=== PATIENT | female | born 1950 | race Caucasian/White ===

== ENCOUNTER 2016-12-18 10:16 | Emergency (ER) | payer OTHER ==
[2016-12-18 10:26] VITALS: RESP 18
[2016-12-18] MEDS ORDERED: OXYCODONE/APAP 5/325 TAB PO ONE (11:02)
--- NOTE | 2016-12-18 11:38 | EDPHY ---
General Narrative: CHIEF COMPLAINT: Fall, left wrist pain HISTORY OF PRESENT ILLNESS: Patient complains of left wrist pain after falling on the ice this morning. She slipped and fell, landing on her outstretched left arm. She felt a sudden onset of pain left wrist. Severe pain. No numbness or tingling. No head strike or loss of consciousness no pain or injury anywhere else. No injury to the left shoulder elbow. The pain is only in the left wrist. Worse with palpation and movement. Minimal improvement rest. No other associated complaints or modifying factors. Right-hand dominant. ESTABLISHED ORTHOPEDIST: None REVIEW OF SYSTEMS: Ten systems reviewed and are negative unless otherwise noted in the HPI PAST MEDICAL HISTORY: None PAST SURGICAL HISTORY: None SOCIAL HISTORY: Visiting from [facility]. Her daughter lives here in [place] FAMILY HISTORY: Noncontributory EXAMINATION General Appearance: Alert, no distress Cardiovascular: Pulses normal throughout. Symmetric radial pulses. Brisk cap refill Neurological: A&O, sensory symmetric, strength symmetric. No wrist drop. Normal light sensation of the hand. Good strength of the interossei on the affected hand. Skin: Warm and dry, no rash. No puncture. No laceration. No abrasion. Some ecchymosis Extremities: Tenderness of the left wrist circumferentially. There is edema and deformity. No tenderness of the left hand. No tenderness of the left elbow or shoulder. Range of motion of the left elbow was intact without pain including full extension. Unable to test full range of motion of the wrist due to pain and deformity. Psychiatric: Mood and affect normal DIFFERENTIAL DIAGNOSES: Including but not limited to fracture, dislocation, fracture dislocation, fracture with displacement, sprain, strain MDM: 11:00 a.m. Mechanical fall with distal radial and ulnar fractures. There is some angulation and intra-articular involvement. I have administered a hematoma block. She has received Percocet p. o.. She is neurovascular intact. I will attempt closed reduction. 11:50 a.m. Closed reduction of the wrist with hematoma block performed. This was performed without complication. She is placed in splint. X-ray has been ordered. 12:20 p.m. Post reduction film reveals no improvement in the fracture. I discussed this with Dr. Yu and he has reviewed it. He informs that the patient is in need of surgical repair in that there is no need to attempt another close reduction. He has openings this afternoon. He would like the patient to see him today. He will plan to put her on the operating scheduled for Sunday. I discussed this with the patient and her daughter. They are comfortable this plan. She is discharged neurovascular intact in a splint. Procedure: Hematoma block Consent: Verbal Location: Left wrist Indication: Distal radial ulnar fractures Description: After time-out the posterior aspect of the wrist was prepped with chlorhexidine. 7 mL of lidocaine 1% plain was infused the area of fracture line. Tolerated well. Good anesthesia. No complication. Neurovascular intact distally postprocedure. PROCEDURE: Closed reduction of distal radial fracture Consent: Verbal Location: Left wrist Anesthesia: Hematoma block Procedure: After good hematoma block and time-out, the patient was placed in finger traps. I was able to provide manipulation of the wrist with traction. There was good manipulation of the fracture segment. Tolerated well. Patient was placed in a splint immediately. Complications: None Post-reduction film: no improvement Procedure: Splint placement Indication: Left wrist fracture Description: Left sugar-tong splint placed by myself and Yanet lam. Tolerated well. Neurovascular intact pre and postprocedure ED Precautions: Worsening pain. Erythema, edema, cyanosis, pallor, paresthesia or anesthesia. - Diagnostics Imaging Results: Imaging Impressions Wrist X-Ray 12/18/16 10:29 Impression: Comminuted angulated fracture of the distal left radial metaphysis with intraarticular extension. Nondisplaced fracture of the ulnar styloid. - History Smoking Status: Former smoker - Objective Vital Signs: Initial Vital Signs Temperature (C) 97.5 F 12/18/16 10:23 Heart Rate 74 12/18/16 10:23 Respiratory Rate 18 12/18/16 10:23 Blood Pressure 164/80 H 12/18/16 10:23 O2 Sat (%) 96 12/18/16 10:23 O2 Delivery Mode Room Air Allergies/Adverse Reactions: No Known Allergies Allergy (Unverified 12/18/16 10:26) Home Medications: Medication Instructions Recorded Enalapril Maleate 5 mg 12/18/16 oxyCODONE HCL/ACETAMINOPHEN 1 each PO Q4-6PRN PRN #13 tablet 12/18/16 [Percocet 5-325 mg Tablet] Medications Given: Discontinued Medications Oxycodone/Acetaminophen (Percocet 5/325) 1 tab PO EDNOW ONE Stop: 12/18/16 11:03 Last Admin: 12/18/16 11:04 Dose: 1 tab Departure - Departure Disposition: Home, Routine, Self-Care Clinical Impression: Fracture of radius, distal, left, closed Qualifiers: Encounter type: initial encounter Fracture morphology: unspecified fracture morphology Qualified Code(s): S52.502A - Unspecified fracture of the lower end of left radius, initial encounter for closed fracture Ulna styloid fracture, closed Qualifiers: Encounter type: initial encounter Fracture alignment: nondisplaced Laterality: left Qualified Code(s): S52.615A - Nondisplaced fracture of left ulna styloid process, initial encounter for closed fracture Condition: Good Instructions: Wrist Fracture in Adults (ED) Additional Instructions: 1. Nonweightbearing left upper extremity until seen by Orthopedics 2. Keep your splint in place at all times until seen by orthopedist 3. [id number]-[id number] anti-inflammatories 600-800 mg ibuprofen as discussed as needed 4. Prescription pain medication as needed as prescribed 5. ED precautions as discussed Referrals: NONE *PRIMARY CARE P,. [Primary Care Provider] - As per Instructions Maximus Yu MD [Medical Doctor] - As per Instructions Prescriptions: oxyCODONE HCL/ACETAMINOPHEN [Percocet 5-325 mg Tablet] 1 each PO Q4-6PRN PRN # 13 tablet PRN Reason: Pain, Breakthrough
[2016-12-18 12:00] VITALS: BP 156/84; PULSE 83; TEMP 98.4; O2SAT 97
== END 2016-12-18 12:26 | disposition home or self-care (01) ==
PROC: 0PSJXZZ Reposition Left Radius, External Approach (ICD-10-PCS; principal; 2016-12-18)
DX: S52.502A Unspecified fracture of the lower end of left radius, initial encounter for closed fracture (principal); S52.615A Nondisplaced fracture of left ulna styloid process, initial encounter for closed fracture; Z87.891 Personal history of nicotine dependence; W01.0XXA Fall on same level from slipping, tripping and stumbling without subsequent striking against object, initial encounter; Y99.8 Other external cause status